=== PATIENT | male | born 1990 | race Caucasian/White ===

== ENCOUNTER 2021-12-28 23:45 | Emergency (ER) | payer OTHER ==
[~2021-12-28] VITALS: Ht 182.9 cm; Wt 90.7 kg
--- NOTE | 2021-12-28 23:57 | NUR ---
DR. HERNANDEZ AT BEDSIDE, MSE IN PROGRESS.
--- NOTE | 2021-12-29 00:07 | NUR ---
XRAY AT BEDSIDE.
--- NOTE | 2021-12-29 00:25 | NUR ---
Patient discharged to home in stable condition. Written and verbal after care instructions given. Patient verbalizes understanding of instructions. Stressed follow up or return to ER for worsening s/s. Steady gait, denies any pain/discomfort upon discharge.
[2021-12-29 00:27] VITALS: BP 136/78
== END 2021-12-29 00:29 | disposition home or self-care (01) ==
LOC: ER 23:50
DX: S62.525A Nondisplaced fracture of distal phalanx of left thumb, initial encounter for closed fracture (principal); X58.XXXA Exposure to other specified factors, initial encounter; Y93.79 Activity, other specified sports and athletics; Y92.89 Other specified places as the place of occurrence of the external cause; R03.0 Elevated blood-pressure reading, without diagnosis of hypertension
CPT/HCPCS: 73140; A4663